=== PATIENT | female | born 1955 | race Caucasian/White ===

== ENCOUNTER 2018-10-29 11:10 | Emergency (ER) | payer MEDICAID, OTHER ==
[~2018-10-29] VITALS: Ht 172.7 cm; Wt 74.4 kg
--- NOTE | 2018-10-29 11:37 | NUR ---
RECEIVED PT SITTING IN BED. NAD. PT WAS SEEN AND EXAMINED BY ER .
[2018-10-29] MEDS ORDERED: GABA-532 PO (11:44)
[2018-10-29] MEDS ORDERED: FURO20TA4 PO (11:44)
[2018-10-29] MEDS ORDERED: RISP0.5T20 PO (11:44)
[2018-10-29] MEDS ORDERED: ACET-2067 PO (11:44)
--- NOTE | 2018-10-29 12:20 | NUR ---
US TECH AT BEDSIDE.
--- NOTE | 2018-10-29 13:13 | NUR ---
SPOKE W/ HALEY FROM [facility]. TRIP # [id number] ETA [id number]
--- NOTE | 2018-10-29 15:43 | NUR ---
PT PROVIDED W/ SANDWICH AND WATER.
--- NOTE | 2018-10-29 15:47 | NUR ---
Patient discharged to home in stable conditon. Written and verbal after care instructions given. Patient verbalizes understanding of instructions. ALL BELONGINGS W/ PT. PT D/C UNDER CARE OF [facility], UN[id number].
[2018-10-29 15:50] VITALS: BP 16/71
== END 2018-10-29 15:51 | disposition home or self-care (01) ==
LOC: ER 11:10
DX: R60.9 Edema, unspecified (principal); G62.9 Polyneuropathy, unspecified; F41.9 Anxiety disorder, unspecified; F20.9 Schizophrenia, unspecified; Z79.899 Other long term (current) drug therapy
CPT/HCPCS: A4663

== ENCOUNTER 2019-04-06 06:32 | Inpatient (IN) | payer OTHER ==
[~2019-04-06] VITALS: Ht 165.1 cm; Wt 74.8 kg
[~2019-04-06 06:32] MED LIST: ACET-2067 PO; FURO20TA4 PO; GABA-532 PO; RISP0.5T20 PO
--- NOTE | 2019-04-06 06:36 | NUR ---
PT WAS BIB [facility]CUE [facility] [employer] EMT ENDORSED: PT WAS C/O R LEG PAIN SINCE YESTERDAY AND R BREAST PAIN SINCE THIS MORNING PT WAS FOUND ON A WHEELCHAIR, EMT STATES PT IS AMBULATORY WITH ASSISTANCE PT IS AOX1 TO PERSON, ABLE TO REPLY WITH CLEAR SINGLE WORDS WHEN ASKED FLAT AFFECT, NO RESPIRATORY DISTRESS NO FEVERS/CHILLS/N/V/D DENIES HX OF TRAUMA NOR SURGERIES TO THE SITE Addendum: 04/06/19 at 0645 by MARICASTLISA LEFT LEG PAIN SIDERAILSX2 UP BED AT LOWEST POSITION MONITORED ACCORDINGLY KEPT WARM DRY AND COMFORTABLE
--- NOTE | 2019-04-06 06:50 | NUR ---
MD AT BEDSIDE FOR HX AND PHYSICAL
[2019-04-06] MEDS ORDERED: ACETAMINOPHEN ES 500 MG TABLET ONE (06:59)
[2019-04-06] MEDS ORDERED: ACETAMINOPHEN ES 500 MG TABLET PO ONE (07:00)
--- NOTE | 2019-04-06 07:02 | NUR ---
PT STATES: "I DON'T FEEL GOOD, I FEEL LIKE SH*T" PT ABLE TO TOLERATE PO PAIN MEDS
--- NOTE | 2019-04-06 07:12 | NUR ---
HAND OFF AND SBAR GIVEN TO INCOMING DAY SHIFT RN (ROSE FOWLER)
[2019-04-06] MEDS ORDERED: HYDROCODONE/APAP 5-325MG TABLET PO ONE (07:45)
[2019-04-06] MEDS ORDERED: HYDROCODONE/APAP 5-325MG TABLET ONE (07:49)
--- NOTE | 2019-04-06 08:06 | NUR ---
Pt refused to have CAM boot, stating "It's hurts more." notified.
--- NOTE | 2019-04-06 08:08 | NUR ---
Hema wrap applied to LLE per md order, but Pt refused.
[2019-04-06] MEDS ORDERED: LORAZEPAM 2 MG/1 ML VIAL IV ONE (08:15)
[2019-04-06] MEDS ORDERED: LORAZEPAM 2 MG/1 ML VIAL ONE (08:21)
--- NOTE | 2019-04-06 08:27 | NUR ---
Pt out of ER for CT.
[2019-04-06 08:45] LABS: BASOPHILS # (AUTO) 0.1 K/uL (0.0-8.0); BASOPHILS % (AUTO) 0.6 % (0.0-2.0); EOSINOPHILS % (AUTO) 0.6 % (0.0-7.0); HEMATOCRIT 37.7 % (31.2-41.9); HEMOGLOBIN 12.5 g/dL (10.9-14.3); LYMPHOCYTES # (AUTO) 1.6 K/uL (20.0-40.0); LYMPHOCYTES % (AUTO) 18.1 % (20.5-51.5); MEAN CORPUSCULAR HEMOGLOBIN 29.3 uug (24.7-32.8); MEAN CORPUSCULAR HGB CONC 33 g/dL (32.3-35.6); MEAN CORPUSCULAR VOLUME 88.3 fL (75.5-95.3); MONOCYTES # (AUTO) 0.7 K/uL (2.0-10.0); MONOCYTES % (AUTO) 7.5 % (0.0-11.0); NEUTROPHILS # (AUTO) 6.6 K/uL (1.8-8.9); NEUTROPHILS % (AUTO) 73.2 % (38.5-71.5); PLATELET COUNT (AUTO) 233 K/uL (179-408); RED BLOOD CELL COUNT(AUTO) 4.27 MIL/uL (3.63-4.92); WHITE BLOOD COUNT (AUTO) 8.9 K/uL (3.8-11.8)
[2019-04-06 08:46] LABS: CREATININE 0.7 mg/dL (0.6-1.3); POTASSIUM 3.7 mmol/L (3.5-5.1)
[2019-04-06 08:51] LABS: BILIRUBIN,DIRECT 0.2 mg/dL (0.0-0.2); BILIRUBIN,TOTAL 0.7 mg/dL (0.2-1.0)
--- NOTE | 2019-04-06 08:53 | NUR ---
Pt back from Ct, Resting in bed w/ both eyes closed, NAD noted.
[2019-04-06 09:29] LABS: *BILIRUBIN,URIN NEGATIVE (NEGATIVE); *CLARITY,URINE CLOUDY (CLEAR); *COLOR,URINE YELLOW (YELLOW); *KETONES,URINE NEGATIVE (NEGATIVE); LEUKOCYTE ESTERASE ,URINE 3+ (NEGATIVE); NITRITE, URINE NEGATIVE (NEGATIVE); UGLUCOSE NEGATIVE (NEGATIVE)
[2019-04-06 09:33] LABS: *BLOOD, URINE TRACE (NEGATIVE)
[2019-04-06 09:41] LABS: BACTERIA,URINE MODERATE /HPF (NONE SEEN); RBC,URINE 0-3 /HPF (0-3); SQUAMOUS EPITHELIAL CELL,UR MANY /HPF (NONE SEEN)
--- NOTE | 2019-04-06 11:20 | NUR ---
ER spoke to intake MD from Pt's case manger (Dr Eastman), awaiting for transfer info.
--- NOTE | 2019-04-06 12:40 | NUR ---
Lunch tray provided, Lori assissted w/ feeding, pt ate 100% of tray.
--- NOTE | 2019-04-06 13:55 | NUR ---
Patient is resting comfortably in bed with eyes closed, NAD noted.
[2019-04-06 16:20] VITALS: BP 109/52
--- NOTE | 2019-04-06 16:30 | NUR ---
RECEIVED PT VIA GURNEY FROM ER. PT AWAKE. PT ALERT AND ORIENTED X1. PT HAS FLAT AFFECTG AND IS UNABLE TO ANSWER QUESTIONS COHERENTLY. NO ACUTE DISTRESS OR SOB NOTED. PLACED ON TELE MONITORING WITH SINUS RHYTHM. PT HAS LUNSFORD CATHETER. BED LOCKED AND IN LOW POSITION. WILL CONTINUE WITH ADMISSION PROCESS. WILL CONTINUE TO MONITOR PT FOR SAFETY AND COMFORT.
--- NOTE | 2019-04-06 18:00 | NUR ---
PT RESTING IN BED. PT REMOVED IV. PT ON TELE MONITORING WITH SINUS RHYTHM. WILL ASK FOR A 1:1 SITTER FOR PT. WILL GIVE REPORT ACCORDINGLY.
--- NOTE | 2019-04-06 19:15 | NUR ---
PATIENT ALERT BUT ALTERED, NO SOB NO CHEST PAIN, TELE MONITOR SINUS RHYTHM AT THIS TIME. PATIENT HAS EPISODE OF PULLING OUT IV LINES, ATTEMPT TO CLIMB OUT OF BED, PATIENT ON 1;1 SITTER FOR SAFETY. PATIENT LUNSFORD CATH PATENT DRAINING WITH YELLOW COLOR URINE IN MODERATE AMOUNT. CONT TO MONITOR.
[2019-04-06 19:37] VITALS: BP 118/60
[2019-04-06] MEDS ORDERED: ACETAMINOPHEN 325 MG TABLET PO PRN (19:45)
--- NOTE | 2019-04-06 20:03 | NUR ---
CALLED AND NOTIFY DR. HUBBARD THAT PATIENT IS POSITIVE FOR UTI, WITH ORDER OF ROCEPHINE 1G IV X1.
[2019-04-06] MEDS ORDERED: CEFTRIAXONE 1 G in IV DEXTROSE 5% 50 ML IV SCH ×4 (20:15)
[2019-04-06] MEDS ORDERED: CEFTRIAXONE 1 G in IV DEXTROSE 5% 50 ML IV ONE (20:39)
[2019-04-06] MEDS: GABAPENTIN 100 MG CAPSULE PO SCH (21:05)
[2019-04-06] MEDS: risperiDONE 0.5 MG TABLET PO SCH (21:05)
[2019-04-07 04:00] VITALS: BP 113/65
--- NOTE | 2019-04-07 06:33 | NUR ---
PATIENT ALERT BUT WITH CONFUSION, NO SOB NO CHEST PAIN, CONT ON TELE MONITOR SINUS RYTHM WITH BUNDLE BRANCH BLOCK BUT NON SUSTAINABLE, LUNSFORD CATH PATENT DRAINING WITH YELLOW COLOR URINE, PATIENT HAS EPISODES OF RESTLESS, AND AGITATION WANTING TO GET UP AND GO HOME, REDIRECT BEHAVIOR ABLE TO FOLLOW AT THIS TIME. DENIES PAIN AT THIS TIME. CONT TO MONITOR.
[2019-04-07 06:44] LABS: EOSINOPHILS # (AUTO) 0.2 K/uL (0.0-0.7); EOSINOPHILS % (AUTO) 3.5 % (0.0-7.0); HEMATOCRIT 36.3 % (31.2-41.9); LYMPHOCYTES # (AUTO) 1.4 K/uL (20.0-40.0); LYMPHOCYTES % (AUTO) 29.1 % (20.5-51.5); MEAN CORPUSCULAR HEMOGLOBIN 29.2 uug (24.7-32.8); MEAN CORPUSCULAR HGB CONC 33 g/dL (32.3-35.6); MEAN CORPUSCULAR VOLUME 87.9 fL (75.5-95.3); MONOCYTES # (AUTO) 0.4 K/uL (2.0-10.0); MONOCYTES % (AUTO) 7.5 % (0.0-11.0); NEUTROPHILS # (AUTO) 2.8 K/uL (1.8-8.9); NEUTROPHILS % (AUTO) 58.9 % (38.5-71.5); PLATELET COUNT (AUTO) 215 K/uL (179-408); RED BLOOD CELL COUNT(AUTO) 4.12 MIL/uL (3.63-4.92)
[2019-04-07 06:51] LABS: CREATININE 0.6 mg/dL (0.6-1.3); POTASSIUM 3.6 mmol/L (3.5-5.1)
[2019-04-07 06:52] LABS: WHITE BLOOD COUNT (AUTO) 4.8 K/uL (3.8-11.8)
--- NOTE | 2019-04-07 08:08 | NUR ---
Confused, restless, agitated, screaming, wanted to go sit on the chair, assisted then back to bed again. Reoriented, redirected. 1:1 Sitter at bedside
[2019-04-07] MEDS: GABAPENTIN 100 MG CAPSULE PO SCH ×3 (08:25→17:28)
[2019-04-07] MEDS: FUROSEMIDE 20 MG TABLET PO SCH (08:25)
[2019-04-07] MEDS: risperiDONE 0.5 MG TABLET PO SCH ×2 (08:25→17:28)
[2019-04-07 10:20] VITALS: BP 116/54
[2019-04-07] MEDS ORDERED: CEFTRIAXONE 1 G VIAL IM SCH (11:45)
[2019-04-07] MEDS: LORAZEPAM 2 MG/1 ML VIAL IV PRN ×2 (12:28→18:47)
--- NOTE | 2019-04-07 12:30 | NUR ---
Patient has been restless and agitated, pulled out saline lock. Dr. Escobar informed with orders. Ativan IV given.
[2019-04-07 16:38] VITALS: BP 133/59
--- NOTE | 2019-04-07 18:24 | NUR ---
Ate fairly. Restless and agitated, getting out of bed several times. Will give Ativan. 1:1 sitter at bedside
[2019-04-07 20:00] VITALS: BP 116/60
--- NOTE | 2019-04-07 20:00 | NUR ---
Patient received into care, laying in bed sleeping, with 1:1 sitter at bedside. Patient has no s/s of acute distress or discomfort observed by nurse. IV site on right FA is patent and intact. Safety and fall precaution measures are in place. Call light and personal items are within reach. Will continue to monitor.
[2019-04-07] MEDS: CEFTRIAXONE 1 G in IV DEXTROSE 5% 50 ML IV SCH (20:23)
[2019-04-08] MEDS: FUROSEMIDE 20 MG TABLET PO SCH (09:11)
[2019-04-08] MEDS: GABAPENTIN 100 MG CAPSULE PO SCH ×3 (09:11→17:24)
[2019-04-08] MEDS: LORAZEPAM 2 MG/1 ML VIAL IV PRN (09:12)
[2019-04-08] MEDS: risperiDONE 0.5 MG TABLET PO SCH ×2 (09:12→17:24)
[2019-04-08] MEDS: CEFTRIAXONE 1 G in IV DEXTROSE 5% 50 ML IV SCH (19:33)
--- NOTE | 2019-04-08 20:00 | NUR ---
Patient received into care laying in bed awake with 1:1 sitter at bedside. Patient is alert/oriented x1 and has no complaints of pain or discomfort at this time. All safety and fall precaution measures are in place. Call light and personal items are within reach at all times. Will continue to monitor and assess.
[2019-04-08 20:03] VITALS: BP 108/58
--- NOTE | 2019-04-08 20:04 | NUR ---
Notified by DIRECTOR M[employer] about elevated temp of 99.5 oral. Instituted cooling measures. Will continue to monitor.
--- NOTE | 2019-04-08 20:45 | NUR ---
Retake of patient's temperature reflects an normal reading of 98.5. Will continue to monitor and assess.
[2019-04-09] MEDS: LORAZEPAM 2 MG/1 ML VIAL IV PRN ×4 (00:15→18:34)
[2019-04-09 05:47] VITALS: BP 118/49
--- NOTE | 2019-04-09 06:00 | NUR ---
Patient slept intermittently throughout night with 1:1 sitter at side for safety. Incident of anxiety/restlessness was addressed with prescribed IV ativan, which patient tolerated well, with no adverse side effects verbalized by patient or observed by nurse. Prescribed IV antibiotic provided as ordered and tolerated well by patient, with no adverse side effects verbalized by patient or observed by nurse. All safety and fall precaution measures remain in place. Call light and personal items remain within reach at all times.
--- NOTE | 2019-04-09 06:45 | NUR ---
Patient complaining of IV site pain when flushing. Please move IV site.
[2019-04-09] MEDS: FUROSEMIDE 20 MG TABLET PO SCH (08:40)
[2019-04-09] MEDS: GABAPENTIN 100 MG CAPSULE PO SCH ×3 (08:40→17:00)
[2019-04-09] MEDS: risperiDONE 0.5 MG TABLET PO SCH ×2 (08:41→17:00)
[2019-04-09 11:00] VITALS: BP 123/65
--- NOTE | 2019-04-09 11:24 | NUR ---
Patient dislodged indwelling brown catheter, will reinsert
--- NOTE | 2019-04-09 12:47 | NUR ---
16 Fr indwelling catheter inserted today at 1145 AM inflated balloon with 10CC of Normal saline, 1 attempt made, patient tolerated procedure well and is now resting
[2019-04-09 15:00] VITALS: BP 121/88
--- NOTE | 2019-04-09 19:40 | NUR ---
PATIENT RECEIVED IN BED AWAKE WITH 1:1 SITTER AT BEDSIDE. NO SIGNS OF DISTRESS AT THE MOMENT, HOWEVER PATIENT IS SEVERELY CONFUSED. IV ON RIGHT FOREARM PATENT, INTACT, AND FLUSHING. SAFETY PRECAUTIONS IN PLACE. IMMEDIATE NEEDS ATTENDED. BED LOW, LOCKED, AND BED ALARM ON. WILL CONTINUE TO MONITOR
[2019-04-09 20:00] VITALS: BP 111/61
[2019-04-09] MEDS: CEFTRIAXONE 1 G in IV DEXTROSE 5% 50 ML IV SCH (20:27)
[2019-04-10] MEDS: LORAZEPAM 2 MG/1 ML VIAL IV PRN ×3 (01:26→20:50)
[2019-04-10 04:00] VITALS: BP 146/70
--- NOTE | 2019-04-10 05:36 | NUR ---
PATIENT SLEPT INTERMITTENTLY THROUGHOUT THE NIGHT. 1:1 SITTER AT BEDSIDE. LUNSFORD DRAINING. NO ACUTE CHANGE IN CONDITION THROUGHOUT SHIFT. SAFETY MEASURES IN PLACE. WILL ENDORSE ACCORDINGLY
[2019-04-10 06:21] LABS: BILIRUBIN,TOTAL 0.5 mg/dL (0.2-1.0); CREATININE 0.8 mg/dL (0.6-1.3); MAGNESIUM 2.1 mg/dL (1.8-2.4); PHOSPHOROUS 3.1 mg/dL (2.5-4.9); POTASSIUM 3.6 mmol/L (3.5-5.1); TOTAL PROTEIN, SERUM 6.8 g/dL (6.4-8.2)
[2019-04-10 06:49] LABS: BASOPHILS # (AUTO) 0.1 K/uL (0.0-8.0); BASOPHILS % (AUTO) 0.8 % (0.0-2.0); EOSINOPHILS # (AUTO) 0.2 K/uL (0.0-0.7); EOSINOPHILS % (AUTO) 2.5 % (0.0-7.0); HEMATOCRIT 37.9 % (31.2-41.9); HEMOGLOBIN 12.6 g/dL (10.9-14.3); LYMPHOCYTES # (AUTO) 1.6 K/uL (20.0-40.0); LYMPHOCYTES % (AUTO) 23.7 % (20.5-51.5); MEAN CORPUSCULAR HEMOGLOBIN 29.3 uug (24.7-32.8); MEAN CORPUSCULAR HGB CONC 33 g/dL (32.3-35.6); MEAN CORPUSCULAR VOLUME 87.6 fL (75.5-95.3); MONOCYTES # (AUTO) 0.5 K/uL (2.0-10.0); NEUTROPHILS # (AUTO) 4.4 K/uL (1.8-8.9); PLATELET COUNT (AUTO) 226 K/uL (179-408); RED BLOOD CELL COUNT(AUTO) 4.32 MIL/uL (3.63-4.92)
[2019-04-10 07:01] LABS: WHITE BLOOD COUNT (AUTO) 6.7 K/uL (3.8-11.8)
--- NOTE | 2019-04-10 07:25 | NUR ---
RECEIVED IN BED AWAKE ALERT TO SELF WITH CONFUSSION AND DISORIENTATION ALL NEEDS ANTICIPATED AND SATISFIED TURNED AND REPOSITIONED [id number] CATH TO GRAVITY DRAINAGE MADE COMFORTABLE AND WILL CONTINUE TO OBSERVE.
[2019-04-10] MEDS: risperiDONE 0.5 MG TABLET PO SCH ×2 (09:08→17:01)
[2019-04-10] MEDS: GABAPENTIN 100 MG CAPSULE PO SCH ×3 (09:08→17:01)
[2019-04-10] MEDS: FUROSEMIDE 20 MG TABLET PO SCH (09:08)
[2019-04-10] MEDS: Z GUARD REMEDY PASTE 57 GM TUBE TOP SCH ×2 (10:07→20:32)
[2019-04-10 11:47] VITALS: BP 134/54
--- NOTE | 2019-04-10 12:24 | NUR ---
PATIENT IS CONFUSED AND DISORIENTED TRYING TO GET OUT OF BED WITH CONTINUOUS REDIRECTION AND PATIENT PUTTING HER LEGS OVER THE SIDE RAILS AT RISKS FOR FALL RELATED TO CONFUSSION AND POOR SAFETY AWARENESS UNABLE TO REDIRECT MEDICATED WITH ATIVAN ORDERED NEW HEPLOCK INSERTED TO HER RIGHT WRIST OLD ONE ON HER RIGHT FOREARM PULLED OUT BY PATIENT.
[2019-04-10 16:30] VITALS: BP 112/44
--- NOTE | 2019-04-10 18:00 | NUR ---
PATIENT CONTINUES TO REQUIRE CONSTANT REDIRECTION ATTEMPTING TO GO SOMEWHERE IN HER OWN WORDS ASSISTED WITH REPOSITIONING Q2H COMPLIANT WITH MEDICATIONS WILL CONTINUE TO OBSERVE
[2019-04-10] MEDS: CEFTRIAXONE 1 G in IV DEXTROSE 5% 50 ML IV SCH (19:41)
[2019-04-10 20:33] VITALS: BP 110/59
[2019-04-11 04:00] VITALS: BP 120/59
--- NOTE | 2019-04-11 07:45 | NUR ---
PATIENT IS VERY AGITATED TRASHING SELF IN BED ATTEMPTING TO GET OUT OF BED PULLING ON HER IV AND LUNSFORD UNABLE TO REDIRECT MEDICATED AT THIS TIME WITH ATIVAN ORDERED AND WILL CONTINUE TO OBSERVE.
[2019-04-11] MEDS: risperiDONE 0.5 MG TABLET PO SCH ×2 (08:18→17:30)
[2019-04-11] MEDS: Z GUARD REMEDY PASTE 57 GM TUBE TOP SCH ×2 (08:19→21:20)
[2019-04-11] MEDS: FUROSEMIDE 20 MG TABLET PO SCH (08:19)
[2019-04-11] MEDS: GABAPENTIN 100 MG CAPSULE PO SCH ×3 (08:19→17:30)
--- NOTE | 2019-04-11 10:00 | NUR ---
PATIENT IS SOMEWHAT QUIETER BUT STILL RESTLESS NOTED THAT SHE PULLED OUT HER LUNSFORD CATH WITH THE BALOON INFLATED NO BLEEDING AT THIS TIME MD CALLED AND LEFT A MESSAGE WILL CONTINUE TO OBSERVE AND PROVIDE SAFE AND THERAPEUTIC ENVIRONMENT AT ALL TIMES.
[2019-04-11 11:15] VITALS: BP 102/51
--- NOTE | 2019-04-11 13:17 | NUR ---
PATIENT CONTINUES TO BE AGITATED AND RESTLESS GETTING OUT OF BED WITH LEGS SEEN HANGING OVER THE SIDE RAILS PLACED BACK INTO BED NUMEROUS TIMES UNABLE TO REDIRECT SO PATIENT PLACED ON THE OMA[place]A CHAIR IN HER ROOM FOR HER SAFETY TO PREVENT FALL WILL CONTINUE TO OBSERVE.
[2019-04-11 15:28] VITALS: BP 102/53
[2019-04-11] MEDS: LORAZEPAM 2 MG/1 ML VIAL IV PRN (18:06)
--- NOTE | 2019-04-11 18:06 | NUR ---
PATIENT IS AGITATED RESTLESS TRYING TO GET OUT OF THE CHAIR UNABLE TO WALK PLACED BACK INTO BED UNABLE TO REDIRECT MEDICATED WITH ATIVAN ORDERED MADE COMFORTABLE WILL CONTINUE TO OBSERVE.
--- NOTE | 2019-04-11 18:17 | NUR ---
PATIENT IS VOIDING WELL IS INCONTINENT OF URINE 3 TIMES ADEQUATE AMOUNT WITH BRUNO CARE.MD AWARE.
[2019-04-11] MEDS: CEFTRIAXONE 1 G in IV DEXTROSE 5% 50 ML IV SCH (19:35)
[2019-04-11 20:22] VITALS: BP 100/53
[2019-04-12] MEDS: LORAZEPAM 2 MG/1 ML VIAL IV PRN ×3 (00:22→21:50)
[2019-04-12 06:11] VITALS: BP 112/59
[2019-04-12] MEDS ORDERED: MENT71OI TOP (06:39)
--- NOTE | 2019-04-12 08:00 | NUR ---
DR CAZARES HERE AND SEEN PATIENT AND STATED THAT PATIENT WILL BE DISCHARGED TODAY TO EITHER A SENIOR CARE FACILITY OR BACK TO [facility] IF SNF UNABLE TO ACCEPT HER.PATIENT REMAIN CONFUSED AND DISORIENTED ATTEMPTING TO GET OUT OF BED UNABLE TO REDIRECT SO PATIENT PLACED UP ON THE OMAIRA CHAIR FOR SAFETY VERY CONFUSED AND DISORIENTED AT THIS TIME.
[2019-04-12] MEDS: FUROSEMIDE 20 MG TABLET PO SCH (08:12)
[2019-04-12] MEDS: GABAPENTIN 100 MG CAPSULE PO SCH ×3 (08:12→16:11)
[2019-04-12] MEDS: risperiDONE 0.5 MG TABLET PO SCH ×2 (08:12→16:11)
[2019-04-12] MEDS: Z GUARD REMEDY PASTE 57 GM TUBE TOP SCH ×2 (08:17→20:54)
[2019-04-12 11:47] VITALS: BP 106/58
--- NOTE | 2019-04-12 12:23 | NUR ---
AWAITING FOR DANCE CHOREOGRAPHER SWEATBAND SEPARATOR TO PROVIDE PLACEMENT EITHER SNF OR BACK TO [facility].
--- NOTE | 2019-04-12 14:00 | NUR ---
PATIENT PLACED BACK INTO BED SHE WAS GETTING TIRED SITTING UP ON THE CHAIR MADE COMFORTABLE INCONTINENT CARE PROVIDED WILL CONTINUE TO OBSERVE.
--- NOTE | 2019-04-12 15:00 | NUR ---
NOTED PATIENT PUTTING HER LEGS OVER THE SIDE RAILS ATTEMPTING TO GET OUT UNATTENDED AT RISKS FOR FALLS ALERT TO NAME ONLY OTHERWISE CONFUSED AND DISORIENTED SO PATIENT PLACED BACK INTO THE OMAIRA CHAIR IN ROOM MADE COMFORTABLE
--- NOTE | 2019-04-12 15:36 | NUR ---
SEEN AND EVALUATED BY THE PHYSICAL THERAPY AMBULATED WITH THE FRONT WHEEL WALKER TWO PERSONS MAX ASSIST TENDS TO WALK ON HER TOES UNABLE TO STAND STRAIGHT DIFFICULTY FOLLOWING DIRECTIONS DUE TO HER CONFUSSION AND DISORIENTATION ASSISTED BACK INTO THE OMAIRA CHAIR AT THIS TIME.
[2019-04-12 15:53] VITALS: BP 111/47
--- NOTE | 2019-04-12 16:12 | NUR ---
PATIENT IS VERY RESTLESS AGITATED ATTEMPTING TO GET OUT OF THE OMAIRA CHAIR THROWING OUT PILLOWS UNABLE TO REDIRECT MEDICATED WITH ATIVAN ORDERED AND WILL CONTINUE TO OBSERVE.
--- NOTE | 2019-04-12 17:25 | NUR ---
SOMEWHAT CALMER BUT STILL AGITATED REMAIN IN OMAIRA CHAIR FOR SAFETY AT THIS TIME WILL CONTINUE TO OBSERVE.
--- NOTE | 2019-04-12 17:50 | NUR ---
PER THE STUDENT FINANCIAL SERVICES COUNSELOR CINDER BLOCK MAKER PATIENT WILL BE DISCHARGED TOMORROW AM BACK TO [facility] UNABLE TO FIND OTHER PLACEMENT AT THIS TIME FOR THIS PATIENT.
--- NOTE | 2019-04-12 18:32 | NUR ---
ASSISTED BACK INTO BED AT THIS TIME INCONTINENT AND PERICARE DONE MADE COMFORTABLE WILL CONTINUE TO OBSERVE.
--- NOTE | 2019-04-12 19:35 | NUR ---
Patient alert and oriented x 1. Discharge initiated for patient to [facility] at 10 AM 04/13/2019. IV 20G intact in patent on left FA. IV Rocephin due for UTI. Patient not agitated or in pain at this time. Incontinent of bowel and bladder with diaper on. Call light and frequently used items within reach. All four side rails up to prevent patient from trying to leave bed. Will continue to monitor.
[2019-04-12] MEDS: CEFTRIAXONE 1 G in IV DEXTROSE 5% 50 ML IV SCH (19:51)
[2019-04-12 20:05] VITALS: BP 109/56
--- NOTE | 2019-04-12 22:34 | NUR ---
Hand off report received from [place]. Patient is sleeping in bed, resting comfortably. Call and personal items are within reach. All safety and fall precaution measures are in place. Will continue to monitor and assess.
[2019-04-13 05:48] VITALS: BP 115/54
[2019-04-13] MEDS: LORAZEPAM 2 MG/1 ML VIAL IV PRN (07:00)
--- NOTE | 2019-04-13 07:15 | NUR ---
RECEIVED PATIENT AWAKE AND IN BED IN BED, PATIENT CONFUSED TRYING TO GET OUT OF BED, NOT REDIRECTABLE. NO ACUTE DISTRESS NOTED. BED IN LOWEST POSITION, SIDE RAILS UP X3. WILL CONTINUE TO MONITOR.
[2019-04-13] MEDS: FUROSEMIDE 20 MG TABLET PO SCH (08:48)
[2019-04-13] MEDS: GABAPENTIN 100 MG CAPSULE PO SCH (08:48)
[2019-04-13] MEDS: risperiDONE 0.5 MG TABLET PO SCH (08:48)
[2019-04-13] MEDS: Z GUARD REMEDY PASTE 57 GM TUBE TOP SCH (08:51)
--- NOTE | 2019-04-13 10:34 | NUR ---
Patient discharged back to [facility]. Reviewed discharge instructions with caseworker. Corporate Treasury Analyst verbalizes understanding. Removed IV and patient escorted down to car without any complications.
== END 2019-04-13 10:30 | disposition home health service (06) | DRG 342 ==
LOC: ER 06:35 → TELE3 15:51 → MEDSURG3 04-07 11:51
PROVIDERS: ADMIT Internal Medicine; ATTEND Internal Medicine Nephrology
DX: S82.832A Other fracture of upper and lower end of left fibula, initial encounter for closed fracture (principal); G92 Toxic encephalopathy; F20.9 Schizophrenia, unspecified; M48.02 Spinal stenosis, cervical region; N39.0 Urinary tract infection, site not specified; I45.10 Unspecified right bundle-branch block; X58.XXXA Exposure to other specified factors, initial encounter; Y92.099 Unspecified place in other non-institutional residence as the place of occurrence of the external cause; Z91.19 Patient's noncompliance with other medical treatment and regimen; M25.78 Osteophyte, vertebrae; M16.12 Unilateral primary osteoarthritis, left hip; Z79.899 Other long term (current) drug therapy; R07.89 Other chest pain
CPT/HCPCS: 36415; 70030-TC; 70450; 71045; 72125; 72192; 73502; 73610; 83605; 83735; 84100; 85025; 85730; 87086; 93005; A4663; A9150; G0378; J0696; J2060; J3490; J7060

== ENCOUNTER 2019-04-26 14:33 | Emergency (ER) | payer OTHER ==
[~2019-04-26] VITALS: Ht 175.3 cm; Wt 72.6 kg
[~2019-04-26 14:33] MED LIST changes: +MENT71OI TOP
[2019-04-26] MEDS ORDERED: TRAZ-182 PO (14:55)
--- NOTE | 2019-04-26 15:10 | NUR ---
1st contact with patient- [id number], poem writer assumes care, for discharge per Dr Soriano for dependent peripheral edema. S ambulance picker and sorter load and unload will be arranged. Patient notified. Comfort & safety measures initiated. Discharge instructions given to [facility] home nurse Xander.
[2019-04-26] MEDS ORDERED: FUROSEMIDE 20 MG TABLET ONE (15:11)
[2019-04-26] MEDS ORDERED: FUROSEMIDE 20 MG TABLET PO ONE (15:15)
--- NOTE | 2019-04-26 16:33 | NUR ---
Patient is seen walking slowly from gurney to a chair, +slow steady gait, NAD, pending BLS ambulance supervisor opening and picking@this time.
--- NOTE | 2019-04-26 16:44 | NUR ---
Patient's diaper is soaking wet with urine. Doretha-anal care done.
--- NOTE | 2019-04-26 17:15 | NUR ---
Patient is eating dinner hot tray with good appetite, NAD, still waiting for S ambulance picker operator
--- NOTE | 2019-04-26 17:42 | NUR ---
Patient discharged to assisted living home in stable conditon. Patient left ER via [facility] unit#[id number]. Patient voided again in the bathroom before leaving the ER.
== END 2019-04-26 17:45 | disposition home or self-care (01) ==
LOC: ER 14:33
DX: R60.9 Edema, unspecified (principal); I50.9 Heart failure, unspecified; F41.9 Anxiety disorder, unspecified; F20.9 Schizophrenia, unspecified; Z79.899 Other long term (current) drug therapy
CPT/HCPCS: A4663